=== PATIENT | female | born 2000 | race Caucasian/White ===

== ENCOUNTER 2020-03-06 12:33 | Emergency (ER) | payer SELFPAY ==
[2020-03-06 12:45] VITALS: BP 104/60
--- NOTE | 2020-03-06 13:21 | ER Document Report ---
ED Medical Screen (RME) - General Chief Complaint: Anxiety Stated Complaint: ANXIETY Time Seen by Provider: 03/06/20 13:19 Notes: This 19-year-old female who apparently was having an anxiety attack at a location when an ambulance was called and she was brought to the emergency room in the triage room I went to speak with her and she told me that she was having a panic attack earlier they brought her to the emergency room that she is feeling fine now and she does not wish to be seen. I told her that she was here and I be more than happy to provide medical evaluation for her and we can see her and do whatever needs to be done she said that she felt 100% fine now she did not really wish to be seen at all and that was granted told her she should certainly follow back up here in the department for at any time should she choose to seek care that we would be more than happy to provide that 365 days a year 24 hours a day. I greeted and performed a rapid initial assessment of this patient. Comprehensive ED assessment and evaluation of the patient, analysis of test results and completion of the medical decision making process will be conducted by additional ED providers. - Related Data Allergies/Adverse Reactions: No Known Allergies Allergy (Verified 03/06/20 13:12) Physical Exam - Vital signs Vitals: Temp Pulse Resp BP Pulse Ox 99.2 F 93 H 14 104/60 97 03/06/20 12:44 03/06/20 12:44 03/06/20 12:44 03/06/20 12:44 03/06/20 12:44 Course - Vital Signs Vital signs: Temp Pulse Resp BP Pulse Ox 99.2 F 93 H 14 104/60 97 03/06/20 12:44 03/06/20 12:44 03/06/20 12:44 03/06/20 12:44 03/06/20 12:44
== END 2020-03-06 13:25 | disposition left against medical advice (07) ==
LOC: ER 12:33
DX: F41.9 Anxiety disorder, unspecified (principal)
CPT/HCPCS: 99281